=== PATIENT | female | born 1985 | race Caucasian/White ===

== ENCOUNTER 2017-08-04 17:09 | Emergency (ER) | payer OTHER ==
--- NOTE | 2017-08-04 18:28 | ER Document Report ---
ED General - General Chief Complaint: Diarrhea Stated Complaint: DIARRHEA Time Seen by Provider: 08/04/17 18:24 Mode of Arrival: Ambulatory Information source: Patient Notes: 32-year-old female presents with complaints of 3 week duration of diarrhea. Patient denies any nausea or vomiting notes she was on Ceftin near initially, patient was seen by her primary care physician today but was unable to provide a stool sample TRAVEL OUTSIDE OF THE [place] IN LAST 30 DAYS: No - HPI Onset: Other Onset/Duration: Persistent Quality of pain: No pain Severity: Mild Pain Level: Denies Associated symptoms: Diarrhea Exacerbated by: Denies Relieved by: Denies Similar symptoms previously: Yes Recently seen / treated by doctor: Yes - Related Data Allergies/Adverse Reactions: promethazine [From Phenergan] Allergy (Verified 08/04/17 17:12) Sulfa (Sulfonamide Antibiotics) Allergy (Verified 08/04/17 17:12) Past Medical History - Social History Smoking Status: Never Smoker Cigarette use (# per day): No Chew tobacco use (# tins/day): No Smoking Education Provided: No Family History: Reviewed & Not Pertinent Review of Systems - Review of Systems Notes: REVIEW OF SYSTEMS: CONSTITUTIONAL : Denies fever, chills, or sweats. Denies recent illness. EENT: Denies eye, ear, throat, or mouth pain or symptoms. Denies nasal or sinus congestion or discharge. Denies throat, tongue, or mouth swelling or difficulty swallowing. CARDIOVASCULAR: Denies chest pain. Denies palpitations or racing or irregular heart beat. Denies ankle edema. RESPIRATORY: Denies cough, cold, or chest congestion. Denies shortness of breath, difficulty breathing, or wheezing. GASTROINTESTINAL: Admits diarrhea GENITOURINARY: Denies difficulty urinating, painful urination, burning, frequency, blood in urine, or discharge. FEMALE GENITOURINARY: Denies vaginal bleeding, heavy or abnormal periods, irregular periods. Denies vaginal discharge or odor. MUSCULOSKELETAL: Denies back or neck pain or stiffness. Denies joint pain or swelling. SKIN: Denies rash, lesions or sores. HEMATOLOGIC : Denies easy bruising or bleeding. LYMPHATIC: Denies swollen, enlarged glands. NEUROLOGICAL: Denies confusion or altered mental status. Denies passing out or loss of consciousness. Denies dizziness or lightheadedness. Denies headache. Denies weakness or paralysis or loss of use of either side. Denies problems with gait or speech. Denies sensory loss, numbness, or tingling. Denies seizures. PSYCHIATRIC: Denies anxiety or stress. Denies depression, suicidal ideation, or homicidal ideation. ALL OTHER SYSTEMS REVIEWED AND NEGATIVE. PHYSICAL EXAMINATION: GENERAL: Well-appearing, well-nourished and in no acute distress. HEAD: Atraumatic, normocephalic. EYES: Pupils equal round and reactive to light, extraocular movements intact, conjunctiva are normal. ENT: Nares patent, oropharynx clear without exudates. Moist mucous membranes. NECK: Normal range of motion, supple without lymphadenopathy LUNGS: Breath sounds clear to auscultation bilaterally and equal. No wheezes rales or rhonchi. HEART: Regular rate and rhythm without murmurs ABDOMEN: Soft, nontender, nondistended abdomen. No guarding, no rebound. No masses appreciated. Female : deferred Musculoskeletal: Normal range of motion, no pitting or edema. No cyanosis. NEUROLOGICAL: Cranial nerves grossly intact. Normal speech, normal gait. Normal sensory, motor exams PSYCH: Normal mood, normal affect. SKIN: Warm, Dry, normal turgor, no rashes or lesions noted. Dictation was performed using pic5 voice recognition software Physical Exam - Vital signs Vitals: Temp Pulse Resp BP Pulse Ox 98.8 F 100 16 119/69 99 08/04/17 17:22 08/04/17 17:22 08/04/17 17:22 08/04/17 17:22 08/04/17 17:22 Course - Re-evaluation Re-evalutation: 08/04/17 19:27 Patient's presentation is quite benign vital signs are normal she looks well is in no distress is able to ambulate with no difficulty, she was able to provide me a stool sample 08/04/17 20:16 C. difficile was positive, patient looks well is drinking water in the waiting room I will discharge her home with antibiotics very close follow-up After performing a Medical Screening Examination, I estimate there is LOW risk for ACUTE APPENDICITIS, BOWEL OBSTRUCTION, ACUTE CHOLECYSTITIS, PERFORATED DIVERTICULITIS, INCARCERATED HERNIA, PANCREATITIS, PELVIC INFLAMMATORY DISEASE, PERFORATED ULCER, ECTOPIC , or TUBO-OVARIAN ABSCESS, thus I consider the discharge disposition reasonable. Also, there is no evidence or peritonitis , sepsis, or toxicity. I have reevaluated this patient multiple times and no significant life threatening changes are noted. The patient and I have discussed the diagnosis and risks, and we agree with discharging home with close follow-up with the understanding that symptoms and presentations can change. We also discussed returning to the Emergency Department immediately if new or worsening symptoms occur. We have discussed the symptoms which are most concerning (e.g., bloody stool, fever, changing or worsening pain, vomiting) that necessitate immediate return. - Vital Signs Vital signs: Temp Pulse Resp BP Pulse Ox 98.8 F 100 16 119/69 99 08/04/17 17:22 08/04/17 17:22 08/04/17 17:22 08/04/17 17:22 08/04/17 17:22 - Laboratory Laboratory results interpreted by me: 08/04/17 19:08 Stool for White Cells MANY H Discharge - Discharge Clinical Impression: C. difficile colitis Diarrhea Qualifiers: Diarrhea type: unspecified type Qualified Code(s): R19.7 - Diarrhea, unspecified Condition: Stable Disposition: HOME, SELF-CARE Instructions: C. (Clostridium) Difficile Infection ([facility]) Prescriptions: Metronidazole [Flagyl 500 mg Tablet] 500 mg PO Q8 #30 tablet Referrals: LAUREL APPLE PA [Primary Care Provider] - Follow up in 3-5 days
[2017-08-04 20:28] VITALS: BP 132/79
== END 2017-08-04 20:23 | disposition home or self-care (01) ==
LOC: ER 17:09
DX: A04.72 Enterocolitis due to Clostridium difficile, not specified as recurrent (principal); R19.7 Diarrhea, unspecified
CPT/HCPCS: 87045; 87205; 87493; 89055; 99284

== ENCOUNTER 2018-07-06 12:12 | Day surgery (SDC) | payer OTHER ==
[2018-06-30 11:35] LABS: APPEARANCE,URINE CLEAR; BILIRUBIN,URINE NEGATIVE (NEGATIVE); COLOR,URINE YELLOW; GLUCOSE, URINE NEGATIVE (NEGATIVE); KETONES,URINE NEGATIVE (NEGATIVE); LEUKOCYTE ESTERASE,URINE NEGATIVE (NEGATIVE); NITRITE,URINE NEGATIVE (NEGATIVE); PROTEIN,URINE NEGATIVE (NEGATIVE); URINE SPECIFIC GRAVITY 1.014; UROBILINOGEN,URINE NEGATIVE mg/dL (<2.0)
[2018-06-30 11:40] LABS: HEMATOCRIT 39.6 % (36.0-47.0); HEMOGLOBIN 13.7 g/dL (12.0-15.5); MEAN CORPUSCULAR HEMOGLOBIN 32.3 pg (27.0-33.4); MEAN CORPUSCULAR HGB CONC 34.6 g/dL (32.0-36.0); MEAN CORPUSCULAR VOLUME 93 fl (80-97); PLATELET COUNT 332 10^3/uL (150-450); RED BLOOD COUNT 4.25 10^6/uL (3.72-5.28); RED CELL DISTRIBUTION WIDTH 15.1 % (11.5-14.0); WHITE BLOOD COUNT 10.4 10^3/uL (4.0-10.5)
[2018-06-30 11:55] LABS: ANION GAP 7 (5-19); BLOOD UREA NITROGEN 8 mg/dL (7-20); CALCIUM 9.2 mg/dL (8.4-10.2); CARBON DIOXIDE 28 mmol/L (22-30); CHLORIDE 103 mmol/L (98-107); GLUCOSE 83 mg/dL (75-110); POTASSIUM 3.9 mmol/L (3.6-5.0); SODIUM 138.4 mmol/L (137-145)
--- NOTE | 2018-07-01 08:00 | EKG REPORT ---
SEVERITY:- NORMAL ECG - SINUS RHYTHM : Confirmed by: Romi Westfall MD 01-Jul-2018 07:59:29
[~2018-07-06 12:12] MED LIST: BUPIVACAINE HCL 0.5 % INJ/PF 30 ML SDV ONE; CEFAZOLIN 2 GM/D5W RTU 2 GM/50 ML RTUPB IV PRN; LACTATED RINGERS 1000 ML IV PRN; LIDOCAINE 0.5% INJ-PF (5 MG/ML) 50 ML SDV SUBCUT PRN
[2018-07-06] MEDS ORDERED: CEFAZOLIN 2 GM/D5W RTU 2 GM/50 ML RTUPB IV ONE (12:45)
[2018-07-06] MEDS ORDERED: SUCCINYLCHOLINE CHLORIDE INJ 200 MG/10 ML VIAL ONE (12:56)
[2018-07-06] MEDS ORDERED: HYDROMORPHONE HCL INJ/PF 2 MG/ML AMPULE ONE ×2 (14:28→17:14)
[2018-07-06] MEDS ORDERED: FENTANYL CITRATE INJ/PF 100 MCG/2 ML AMPUL ONE (14:29)
[2018-07-06] MEDS ORDERED: DEXAMETHASONE SOD PHOSPHATE INJ 4 MG/1 ML VIAL ONE (14:29)
[2018-07-06] MEDS ORDERED: ONDANSETRON HCL INJ/PF 4 MG/2 ML SDV ONE ×2 (14:29→17:29)
[2018-07-06] MEDS ORDERED: ACETAMINOPHEN 1,000 MG/100 ML RTUPB IV ONE (14:29)
[2018-07-06] MEDS ORDERED: PROPOFOL INJ 200 MG/20 ML VIAL IV ONE (14:29)
[2018-07-06] MEDS ORDERED: MIDAZOLAM 2 MG/2 ML INJ ONE (14:29)
[2018-07-06] MEDS ORDERED: OXYCODONE-ACETAMINOPHEN 5-325 MG TABLET PO PRN ×3 (15:43→16:34)
[2018-07-06] MEDS ORDERED: FENTANYL CITRATE INJ/PF 100 MCG/2 ML AMPUL IV PRN ×3 (15:43)
[2018-07-06] MEDS ORDERED: MEPERIDINE HCL/PF INJ 25 MG/1 ML DISP.SYRIN IV PRN (15:43)
[2018-07-06] MEDS ORDERED: ONDANSETRON HCL INJ/PF 4 MG/2 ML SDV IV PRN (15:43)
[2018-07-06] MEDS ORDERED: DIPHENHYDRAMINE HCL 50 MG/ML VIAL IV PRN (15:43)
--- NOTE | 2018-07-06 16:28 | Discharge Summary ---
Discharge Summary (SDC) - Discharge Final Diagnosis: Left elbow synovitis, contracture Date of Surgery: 07/06/18 Discharge Date: 07/06/18 Condition: Good Treatment or Instructions: Schedule Follow Up w/ Dr. Victor Hugo Vasquez @ [facility] for Surgery to be seen in 10-14 days or as scheduled [place]: [place]: [place]: May remove dressing on postop day #3, keep incision covered and dry. Ice and elevate May begin finger range of motion attempting to make full fist. Stool softener of choice when on pain medication. USE OF [id number] IBUPROFEN: Ibuprofen (Advil, Nuprin, Medipren, Motrin IB) is a medication for fever and pain control. In addition, it has anti- inflammatory effects which may be beneficial, especially in the treatment of injuries. It's best to take ibuprofen with food. Persons with ulcer disease or allergy to aspirin should notify their physician of this before taking ibuprofen. Ibuprofen can be given every four to six hours, for a total of four doses daily. Age Pain or fever dose Antiinflammatory dose 6-8 yr 200 mg (1 tab) 200 mg (1 tab) 9-11 yr 200 mg (1 tab) 200-400 mg (1-2 tab) 11-14 yr 200-400 mg (1-2 tab) 400 mg (2 tab) 15-adult 400 mg (2 tab) 600 mg (3 tab) ORAL NARCOTIC MEDICATION: You have been given a prescription for pain control. This medication is a narcotic. It's best taken with food, as nausea can result if taken on an empty stomach. Don't operate machinery or drive within six hours of taking this medication. Do not combine this medicine with alcohol, or with any medication which can cause sedation (such as cold tablets or sleeping pills) unless you get permission from the physician. Narcotics tend to cause constipation. If possible, drink plenty of fluids and eat a diet high in fiber and fruits. Please be aware that prescription narcotics also have the potential for abuse. People become addicted to these medications because of the general sense of wellbeing that they induce. This feeling along with a significant reduction in tension, anxiety, and aggression provides a stimulating seductive quality to these drugs. Once your pain is under control, we encourage you to discard your unused narcotics. Prescriptions: Ketorolac Tromethamine [Toradol 10 mg Tablet] 10 mg PO Q8HP PRN #12 tablet PRN Reason: Oxycodone HCl/Acetaminophen [Percocet 5-325 mg Tablet] 1 tab PO Q6 PRN #25 tab PRN Reason: Referrals: LAUREL APPLE PA [Primary Care Provider] - Respiratory Treatments at Home: Deep Breathing/Coughing Discharge Activity: No Lifting Over 10 Pounds, No Lifting/Push/Pulling Report the Following to Your Physician Immediately: Fever over 101 Degrees, Unusual Bleeding, Redness, Swelling, Warmth, Increased Soreness
[2018-07-06] MEDS ORDERED: HYDROMORPHONE HCL INJ/PF 2 MG/ML AMPULE IV PRN (16:34)
--- NOTE | 2018-07-06 16:34 | Operative Report ---
Operative Report DATE OF SURGERY: 07/06/18 PREOPERATIVE DIAGNOSIS: Left elbow synovitis, flexion contracture POSTOPERATIVE DIAGNOSIS: Same OPERATION: Left elbow arthroscopy with synovectomy, lateral epicondyle ligament debridement, anterior capsular release SURGEON: LINDA TAM ANESTHESIA: GA COMPLICATIONS: None ESTIMATED BLOOD LOSS: Minimal PROCEDURE: Indication for above procedure: 32-year-old female with history of rheumatoid arthritis was had ongoing issues with her left elbow. She originally developed a apparent infection which r equired arthroscopic irrigation debridement. Over time her symptoms slowly returned and developed flexion contracture. Patient has been worked up by her transportation engineer and myself we discussed treatment options including operative versus nonoperative intervention after failing conservative treatment joint decision was made to proceed with operative treatment. Procedure In Detail: Patient was seen and evaluated in the preoperative holding area. The LEFT upper extremity was initialized and marked. Patient received 2g of Ancef IV for bacterial prophylaxis. Patient was taken back to the operative room where transferred to the operative table and placed under general anesthesia. Once they were adequately anesthetized a nonsterile tourniquet was placed on the upper extremity. A surgical team debriefing was performed ensuring all instrumentation was available, the surgical procedure was discussed with possible concerns reviewed. Patient was placed in a lateral decubitus position. All bony prominences carefully padded and cervical spine placed in a neutral position. The upper extremity was prepped with ChloraPrep and draped in a sterile fashion. A timeout was done identifying correct patient, procedure and extremity everyone in attendance agree with this and verbalized no concerns. The extremity was exsanguinated the tourniquet was inflated to 250 mmHg. Joint was insufflated with 20 cc of saline through the soft spot portal Proximal anterior medial portal was established 2 cm proximal and anterior to the medial epicondyle at previous skin incision. Blunt dissection was performed through soft tissues and arthroscope introduced into the joint. Via triangulation a proximal anterior lateral portal was established and a cannula placed. Diagnostic arthroscopy demonstrated capsular contracture along the anterior capsule with underlying synovitis. 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 Anterior capsulectomy was then performed after the completion of which patient was able to achieve full passive extension without resistance. The lateral epicondyle was then debrided releasing the extensor mechanism and debriding any residual angiofibroblastic dysplasia until normal-appearing muscle/tendon was visualized. It was then further debrided with a radiofrequency ablator. 18-gauge spinal needle was placed on the lateral condyle which coincided with the area of release and patient's discomfort. Previous distal anterior lateral portal incision was utilized to place a retractor for retracting the capsule during release. Partial synovectomy was then performed along the lateral and medial compartments. Arthroscope was introduced into the lateral compartment the a switching stick. There is no evidence of degeneration at the radiocapitellar joint or ulnohumeral joint. Attention then turned to the posterior compartment. A posterior central portal 5 cm proximal to the olecranon tip and a posterior lateral portal was established inspection of the olecranon fossa demonstrated mild degenerative tissue and scarring this was then resected. Elbow was placed into full extension there is no evidence of bony impingement. 30 cc of 0.5% bupivacaine without epinephrine was injected for postoperative pain control. Wound was dressed with Xeroform 4 x 4's and ABD and a soft dressing was placed. Tourniquet was deflated. Patient had good peripheral effusion. Sponge counts, instrument counts, needle counts were correct. Patient was then awoken from anesthesia. Transferred from the operating room table to the operat ing room stretcher. There was no intraoperative complications patient tolerated procedure well stable to PACU. Postop plan: Will attempt to set patient up for physical therapy within the next 5-7 days to begin range of motion exercises.
[2018-07-06] MEDS: FENTANYL CITRATE INJ/PF 100 MCG/2 ML AMPUL ONE ×2 (16:35→16:40)
[2018-07-06] MEDS ORDERED: OXYCODONE-ACETAMINOPHEN 5-325 MG TABLET ONE (16:46)
[2018-07-06 18:28] VITALS: BP 122/81
== END 2018-07-06 18:32 | disposition home or self-care (01) ==
LOC: OROUT 12:12
PROVIDERS: ATTEND Orthopaedic Surgery
DX: M06.822 Other specified rheumatoid arthritis, left elbow (principal); M65.122 Other infective (teno)synovitis, left elbow; M24.522 Contracture, left elbow; G56.32 Lesion of radial nerve, left upper limb; E78.00 Pure hypercholesterolemia, unspecified; M06.9 Rheumatoid arthritis, unspecified; E03.9 Hypothyroidism, unspecified; E66.3 Overweight; Z68.25 Body mass index [BMI] 25.0-25.9, adult; M79.7 Fibromyalgia; R00.0 Tachycardia, unspecified; Z88.8 Allergy status to other drugs, medicaments and biological substances; Z88.2 Allergy status to sulfonamides; Z79.899 Other long term (current) drug therapy
CPT/HCPCS: 93010; 93005; 36415; 85027; 81025; 80048; 81001; 29838; 24006; J2250; J3490; J1100; J3010; J1170; J0330; J2405; J2704; J0690; J0131; 1740